=== PATIENT | male | born 1935 | race Caucasian/White ===

== ENCOUNTER → 2017-01-07 | Outpatient (CLI) | payer MEDICARE, OTHER | LOC: US 01-03 09:30 | DX: I71.4 Abdominal aortic aneurysm, without rupture (principal); M79.606 Pain in leg, unspecified; R26.2 Difficulty in walking, not elsewhere classified; R09.89 Other specified symptoms and signs involving the circulatory and respiratory systems; I71.9 Aortic aneurysm of unspecified site, without rupture | CPT/HCPCS: 76706; 93925 ==